=== PATIENT | female | born 1990 | race Two or more races ===

== ENCOUNTER 2024-09-15 06:17 | Day surgery (SDC) | payer OTHER ==
[2024-09-15] MEDS ORDERED: fentaNYL CITRATE 50 MCG/ML AMPUL IV PUSH ONE (10:00)
[2024-09-15] MEDS ORDERED: DIPHENHYDRAMINE HCL 50 MG/ML VIAL 1ML IV ONE (10:00)
[2024-09-15] MEDS ORDERED: MIDAZOLAM HCL 2 MG/2 ML VIAL IV ONE (10:00)
== END 2024-09-15 11:45 | disposition home or self-care (01) ==
LOC: AMB-ENDOS 06:17
PROVIDERS: ATTEND Colon & Rectal Surgery
DX: K62.5 Hemorrhage of anus and rectum (principal)